=== PATIENT | female | born 1950 | race Caucasian/White ===

== ENCOUNTER → 2017-01-23 | Outpatient (CLI) | payer MEDICARE ==
[~2017-01-23] MED LIST: ATOR10TA PO; B12 PO; D3 PO; HYDR50TA3 PO; LEVO75TA5 PO; LISI-167 PO; METF500T4 PO; OMNIPAQUE 350 MG/ML, 100ML BOTTLE ONE; TRAM50TA2 PO
== END | disposition home or self-care (01) ==
LOC: RAD 09:55
PROVIDERS: ATTEND Surgery
DX: C78.7 Secondary malignant neoplasm of liver and intrahepatic bile duct (principal); C78.89 Secondary malignant neoplasm of other digestive organs; C18.9 Malignant neoplasm of colon, unspecified; R91.8 Other nonspecific abnormal finding of lung field; R16.1 Splenomegaly, not elsewhere classified; I87.1 Compression of vein; R59.9 Enlarged lymph nodes, unspecified; Z90.49 Acquired absence of other specified parts of digestive tract; Z90.710 Acquired absence of both cervix and uterus
CPT/HCPCS: 71260; 74177; Q9967

== ENCOUNTER 2017-01-27 07:01 | Day surgery (SDC) | payer MEDICARE ==
[~2017-01-27] VITALS: Ht 162.6 cm; Wt 79.0 kg
[2017-01-27] MEDS ORDERED: D3 PO (07:32)
[2017-01-27] MEDS ORDERED: LISI-167 PO (07:32)
[2017-01-27] MEDS ORDERED: LEVO75TA5 PO (07:32)
[2017-01-27] MEDS ORDERED: TRAM50TA2 PO (07:32)
[2017-01-27] MEDS ORDERED: B12 PO (07:32)
[2017-01-27] MEDS ORDERED: ATOR10TA PO (07:32)
[2017-01-27] MEDS ORDERED: METF500T4 PO (07:32)
[2017-01-27] MEDS ORDERED: HYDR50TA3 PO (07:32)
[2017-01-27 07:34] VITALS: BP 116/70
[2017-01-27] MEDS ORDERED: MIDAZOLAM 1 MG/ML, 5ML ONE (08:09)
[2017-01-27] MEDS ORDERED: FENTANYL PF 100 MCG/2ML ONE (08:10)
== END 2017-01-27 10:30 | disposition home or self-care (01) ==
LOC: OUT 07:01
PROVIDERS: ATTEND Surgery
DX: C78.7 Secondary malignant neoplasm of liver and intrahepatic bile duct (principal); C18.2 Malignant neoplasm of ascending colon; I10 Essential (primary) hypertension; E11.9 Type 2 diabetes mellitus without complications; Z88.6 Allergy status to analgesic agent; E78.5 Hyperlipidemia, unspecified; E03.9 Hypothyroidism, unspecified; E66.9 Obesity, unspecified; Z68.29 Body mass index [BMI] 29.0-29.9, adult; Z90.49 Acquired absence of other specified parts of digestive tract; Z90.710 Acquired absence of both cervix and uterus; Z72.89 Other problems related to lifestyle; Z91.048 Other nonmedicinal substance allergy status; Z80.1 Family history of malignant neoplasm of trachea, bronchus and lung; Z80.0 Family history of malignant neoplasm of digestive organs; Z80.3 Family history of malignant neoplasm of breast; Z80.43 Family history of malignant neoplasm of testis; Z84.1 Family history of disorders of kidney and ureter
CPT/HCPCS: 36415; 47000; 77012; 85610; 88307; 99156; 99157; J2250; J3010

== ENCOUNTER 2017-02-12 11:00 | Day surgery (SDC) | payer MEDICARE ==
[~2017-02-12] VITALS: Ht 162.6 cm; Wt 77.0 kg
[~2017-02-12 11:00] MED LIST changes: +BUPIVACAINE/PF-EPI 0.5% 1:200K ONE; -OMNIPAQUE 350 MG/ML, 100ML BOTTLE ONE
[2017-02-12] MEDS ORDERED: LACTATED RINGERS 1,000 ML IV SCH (11:34)
[2017-02-12 11:53] VITALS: BP 111/67
[2017-02-12] MEDS ORDERED: MIDAZOLAM 1 MG/ML, 2ML IV PRN (13:00)
[2017-02-12] MEDS ORDERED: OXYcodone 5 MG/5 ML ORAL.SOL UDC PO PRN (13:00)
[2017-02-12] MEDS ORDERED: MEPERIDINE/PF 25MG/0.5ML IVPush PRN (13:00)
[2017-02-12] MEDS ORDERED: morphine SULFATE 10 MG/ML, 1ML IV PRN (13:00)
[2017-02-12] MEDS ORDERED: ONDANSETRON 2MG/ML, 2ML IVPush PRN (13:00)
[2017-02-12] MEDS ORDERED: HEPARIN 1,000 UNITS/ML, 10ML ONE (13:16)
[2017-02-12] MEDS ORDERED: CEFAZOLIN 1,000 MG ONE (13:36)
[2017-02-12] MEDS ORDERED: DEXAMETHASONE 4 MG/ML, 1ML ONE (13:36)
[2017-02-12] MEDS ORDERED: MIDAZOLAM 1 MG/ML, 2ML ONE (13:36)
[2017-02-12] MEDS ORDERED: METOCLOPRAMIDE 5 MG/ML, 2ML ONE (13:36)
[2017-02-12] MEDS ORDERED: FENTANYL PF 100 MCG/2ML ONE ×2 (13:36→14:34)
[2017-02-12] MEDS ORDERED: ONDANSETRON 2MG/ML, 2ML ONE (13:36)
[2017-02-12] MEDS ORDERED: PROPOFOL 10 MG/ML, 20ML ONE (13:36)
[2017-02-12] MEDS ORDERED: OXYcodone 5 MG/5 ML ORAL.SOL UDC ONE (14:34)
[2017-02-12] MEDS: FENTANYL PF 100 MCG/2ML IV PRN ×2 (14:37→14:44)
== END 2017-02-12 16:15 ==
LOC: OUT 11:00
PROVIDERS: ATTEND Surgery
DX: C18.9 Malignant neoplasm of colon, unspecified (principal); E11.9 Type 2 diabetes mellitus without complications; E03.9 Hypothyroidism, unspecified; E78.5 Hyperlipidemia, unspecified; D69.6 Thrombocytopenia, unspecified; Z79.84 Long term (current) use of oral hypoglycemic drugs; Z79.899 Other long term (current) drug therapy; Z88.8 Allergy status to other drugs, medicaments and biological substances; Z72.89 Other problems related to lifestyle; Z68.30 Body mass index [BMI] 30.0-30.9, adult; Z80.3 Family history of malignant neoplasm of breast; Z80.1 Family history of malignant neoplasm of trachea, bronchus and lung; Z90.710 Acquired absence of both cervix and uterus; Z84.1 Family history of disorders of kidney and ureter; Z88.6 Allergy status to analgesic agent
CPT/HCPCS: 36561; 71010; 82962; 93005; C1769; C1788; J0690; J1100; J1644; J2250; J2405; J2704; J2765; J3010; J7120; 36415; 86850; 86870; 86880; 86900; 86902

== ENCOUNTER 2017-03-06 13:46 | Inpatient (IN) | payer MEDICARE ==
[~2017-03-06] VITALS: Ht 162.6 cm; Wt 78.1 kg
[~2017-03-06 13:46] MED LIST changes: -BUPIVACAINE/PF-EPI 0.5% 1:200K ONE
[2017-03-06] MEDS ORDERED: ACETAMINOPHEN 325 MG TABLET PO ONE (14:30)
[2017-03-06] MEDS ORDERED: HYDROcodone/APAP 5/325 TABLET PO ONE (14:30)
[2017-03-06] MEDS ORDERED: CEFTRIAXONE PMX 1GM/50ML 50 ML IVPB ONE (14:30)
[2017-03-06] MEDS ORDERED: SODIUM CHLORIDE 0.9% 1,000ML IVBOLUS ONE ×2 (14:30→15:00)
[2017-03-06] MEDS ORDERED: SODIUM CHLORIDE FLUSH 10ML SYR IVF ONE (14:30)
[2017-03-06] MEDS ORDERED: HYDROcodone/APAP 5/325 TABLET ONE (14:44)
[2017-03-06] MEDS ORDERED: ACETAMINOPHEN 325 MG TABLET ONE (14:44)
[2017-03-06 14:49] LABS: ASPARTATE AMINO TRANSFERASE 25 U/L (15-37); BLOOD UREA NITROGEN 15 mg/dL (7-18)
[2017-03-06] MEDS ORDERED: CEFTRIAXONE PMX 1GM/50ML 50 ML ONE (15:06)
[2017-03-06 15:12] LABS: DIFF TOTAL CELLS COUNTED 200 CELL DIFF; VERIFY COUNTS? YES
[2017-03-06 15:13] LABS: ANISOCYTOSIS 1+; MICROCYTOSIS 1+; POLYCHROMASIA 1+
[2017-03-06 15:14] LABS: LARGE PLATELETS 1+; MONOS WITH VACUOLES 1+
[2017-03-06] MEDS ORDERED: CYAN50008 PO (16:11)
[2017-03-06] MEDS ORDERED: CHOL40002 PO (16:11)
[2017-03-06] MEDS ORDERED: morphine SULFATE 10 MG/ML, 1ML IVPush PRN (17:00)
[2017-03-06] MEDS ORDERED: ONDANSETRON 2MG/ML, 2ML IVPush PRN (17:00)
[2017-03-06] MEDS ORDERED: LORazepam 2 MG/ML, 1ML IVPush PRN (17:00)
[2017-03-06] MEDS ORDERED: VANCOMYCIN PER PHARMACY MC PRN (17:00)
[2017-03-06] MEDS ORDERED: ACETAMINOPHEN 325 MG TABLET PO PRN (17:00)
[2017-03-06] MEDS ORDERED: DOCUSATE 100 MG CAPSULE PO PRN (17:00)
[2017-03-06] MEDS ORDERED: PHARMACOKINETIC MONITORING MC PRN (18:00)
[2017-03-06] MEDS ORDERED: POTASSIUM CHLORIDE 20 MEQ TAB.ER.PRT PO ONE (18:00)
[2017-03-06 18:13] VITALS: BP 95/57
[2017-03-06] MEDS: CEFEPIME 2 GM in DEXTROSE 5% 100 ML IV SCH (19:37)
[2017-03-06] MEDS: ENOXAPARIN 40 MG/0.4 ML SQ SCH (19:39)
[2017-03-06] MEDS: SODIUM CHLORIDE 0.9% 1,000 ML IV SCH (19:41)
[2017-03-06 19:50] VITALS: BP 97/61
[2017-03-06] MEDS: VANCOMYCIN 1,500 MG in SODIUM CHLORIDE 0.9% 250 ML IV SCH (21:14)
[2017-03-06] MEDS: HYDROcodone/APAP 5/325 TABLET PO PRN (21:14)
[2017-03-06] MEDS: INSULIN ASPART 100 UNITS/ML, PEN SQ-INSULIN SCH (21:37)
[2017-03-07 01:49] VITALS: BP 93/56
[2017-03-07] MEDS: LEVOTHYROXINE 75 MCG TABLET PO SCH (03:33)
[2017-03-07] MEDS: CEFEPIME 2 GM in DEXTROSE 5% 100 ML IV SCH ×3 (03:33→20:32)
[2017-03-07 05:26] LABS: BLOOD UREA NITROGEN 13 mg/dL (7-18)
[2017-03-07 05:30] LABS: ASPARTATE AMINO TRANSFERASE 17 U/L (15-37)
[2017-03-07 06:58] LABS: DIFF TOTAL CELLS COUNTED 100 CELL DIFF
[2017-03-07] MEDS: INSULIN ASPART 100 UNITS/ML, PEN SQ-INSULIN SCH ×4 (07:00→20:33)
[2017-03-07] MEDS: HYDROcodone/APAP 5/325 TABLET PO PRN ×3 (07:03→17:38)
[2017-03-07 07:04] VITALS: BP 94/55
[2017-03-07 07:32] LABS: ANISOCYTOSIS 1+; MICROCYTOSIS 1+; VERIFY COUNTS? YES
[2017-03-07] MEDS: VANCOMYCIN 1,500 MG in SODIUM CHLORIDE 0.9% 250 ML IV SCH ×2 (09:49→21:12)
[2017-03-07] MEDS ORDERED: POTASSIUM CHLORIDE 20 MEQ TAB.ER.PRT PO ONE ×2 (10:30→16:30)
[2017-03-07] MEDS ORDERED: CEFTRIAXONE PMX 2GM/50ML 50 ML IV SCH (11:00)
[2017-03-07] MEDS: SODIUM CHLORIDE 0.9% 1,000 ML IV SCH (12:01)
[2017-03-07 13:18] VITALS: BP 112/67
[2017-03-07] MEDS ORDERED: FUROSEMIDE 40 MG/4 ML IV ONE (16:30)
[2017-03-07 18:46] VITALS: BP 105/65
[2017-03-07] MEDS: ENOXAPARIN 40 MG/0.4 ML SQ SCH (20:00)
[2017-03-08 03:00] VITALS: BP 100/62
[2017-03-08] MEDS: CEFEPIME 2 GM in DEXTROSE 5% 100 ML IV SCH ×3 (03:38→19:44)
[2017-03-08] MEDS: LEVOTHYROXINE 75 MCG TABLET PO SCH (03:38)
[2017-03-08 04:10] LABS: DIFF TOTAL CELLS COUNTED 100 CELL DIFF
[2017-03-08 04:11] LABS: BLOOD UREA NITROGEN 11 mg/dL (7-18)
[2017-03-08 04:15] LABS: ASPARTATE AMINO TRANSFERASE 20 U/L (15-37)
[2017-03-08 04:18] LABS: ANISOCYTOSIS 1+; MICROCYTOSIS 1+; POLYCHROMASIA 1+; VERIFY COUNTS? YES
[2017-03-08] MEDS: HYDROcodone/APAP 5/325 TABLET PO PRN ×3 (05:47→17:40)
[2017-03-08] MEDS: INSULIN ASPART 100 UNITS/ML, PEN SQ-INSULIN SCH ×4 (07:00→21:36)
[2017-03-08 07:43] VITALS: BP 128/70
[2017-03-08] MEDS: VANCOMYCIN 1,500 MG in SODIUM CHLORIDE 0.9% 250 ML IV SCH (09:08)
[2017-03-08] MEDS ORDERED: FUROSEMIDE 40 MG/4 ML IV ONE (09:18)
[2017-03-08] MEDS ORDERED: FUROSEMIDE 40 MG/4 ML IV PRN ×2 (09:30→19:00)
[2017-03-08] MEDS ORDERED: POTASSIUM CHLORIDE 20 MEQ TAB.ER.PRT PO ONE (10:00)
[2017-03-08 14:20] VITALS: BP 109/69
[2017-03-08] MEDS ORDERED: FUROSEMIDE 40 MG TABLET PO ONE (16:00)
[2017-03-08] MEDS ORDERED: ONDANSETRON 2MG/ML, 2ML IVPush PRN (19:00)
[2017-03-08] MEDS ORDERED: DOCUSATE 100 MG CAPSULE PO PRN (19:00)
[2017-03-08] MEDS ORDERED: ACETAMINOPHEN 325 MG TABLET PO PRN (19:00)
[2017-03-08] MEDS ORDERED: PHARMACOKINETIC MONITORING MC PRN (19:00)
[2017-03-08] MEDS ORDERED: morphine SULFATE 10 MG/ML, 1ML IVPush PRN (19:00)
[2017-03-08] MEDS ORDERED: LORazepam 2 MG/ML, 1ML IVPush PRN (19:00)
[2017-03-08 19:45] VITALS: BP 101/62
[2017-03-08] MEDS: ENOXAPARIN 40 MG/0.4 ML SQ SCH (19:47)
[2017-03-09] MEDS: VANCOMYCIN 1,500 MG in SODIUM CHLORIDE 0.9% 250 ML IV SCH (00:04)
[2017-03-09 01:24] VITALS: BP 123/75
[2017-03-09] MEDS: LEVOTHYROXINE 75 MCG TABLET PO SCH (04:00)
[2017-03-09] MEDS: CEFEPIME 2 GM in DEXTROSE 5% 100 ML IV SCH ×3 (04:00→19:37)
[2017-03-09 04:37] LABS: BLOOD UREA NITROGEN 10 mg/dL (7-18)
[2017-03-09] MEDS: HYDROcodone/APAP 5/325 TABLET PO PRN ×3 (06:17→17:42)
[2017-03-09] MEDS: INSULIN ASPART 100 UNITS/ML, PEN SQ-INSULIN SCH ×4 (07:29→21:31)
[2017-03-09] MEDS: FUROSEMIDE 40 MG TABLET PO SCH (07:41)
[2017-03-09] MEDS: POTASSIUM CHLORIDE 20 MEQ TAB.ER.PRT PO SCH (07:41)
[2017-03-09 08:11] VITALS: BP 120/71
[2017-03-09] MEDS ORDERED: MAGNESIUM SULFATE PMX 2GM/50ML 50 ML IV ONE (08:30)
[2017-03-09] MEDS ORDERED: POTASSIUM PHOSPHATE 88 MEQ in SODIUM CHLORIDE 0.9% 1,000 ML IV ONE (09:00)
[2017-03-09] MEDS ORDERED: FUROSEMIDE 40 MG TABLET PO SCH (09:00)
[2017-03-09] MEDS ORDERED: POTASSIUM CHLORIDE 20 MEQ TAB.ER.PRT PO ONE (11:00)
[2017-03-09] MEDS: VANCOMYCIN 1,300 MG in SODIUM CHLORIDE 0.9% 250 ML IV SCH (12:54)
[2017-03-09 13:50] VITALS: BP 123/74
[2017-03-09 19:12] VITALS: BP 124/70
[2017-03-09] MEDS: ENOXAPARIN 40 MG/0.4 ML SQ SCH (19:39)
[2017-03-10] MEDS: VANCOMYCIN 1,300 MG in SODIUM CHLORIDE 0.9% 250 ML IV SCH ×2 (00:02→12:46)
[2017-03-10 01:57] VITALS: BP 122/71
[2017-03-10] MEDS: CEFEPIME 2 GM in DEXTROSE 5% 100 ML IV SCH ×3 (04:22→19:49)
[2017-03-10] MEDS: LEVOTHYROXINE 75 MCG TABLET PO SCH (04:36)
[2017-03-10 04:56] LABS: BLOOD UREA NITROGEN 13 mg/dL (7-18)
[2017-03-10] MEDS: HYDROcodone/APAP 5/325 TABLET PO PRN ×2 (05:54→18:15)
[2017-03-10 07:39] VITALS: BP 119/71
[2017-03-10] MEDS: INSULIN ASPART 100 UNITS/ML, PEN SQ-INSULIN SCH ×4 (08:40→20:47)
[2017-03-10] MEDS: POTASSIUM CHLORIDE 20 MEQ TAB.ER.PRT PO SCH (08:40)
[2017-03-10] MEDS: FUROSEMIDE 40 MG TABLET PO SCH (08:40)
[2017-03-10] MEDS ORDERED: HYDR-3240 PO (14:07)
[2017-03-10] MEDS ORDERED: POTA20TA6 PO (14:07)
[2017-03-10] MEDS ORDERED: FURO40TA6 PO (14:07)
[2017-03-10] MEDS ORDERED: POLY17PO5 PO (14:07)
[2017-03-10] MEDS ORDERED: CEFD300C37 PO (14:12)
[2017-03-10] MEDS ORDERED: PHARMACY INSTRUCTION MC ONE (16:00)
[2017-03-10 16:01] VITALS: BP 129/72
[2017-03-10] MEDS: ENOXAPARIN 40 MG/0.4 ML SQ SCH (19:56)
[2017-03-10 20:01] VITALS: BP 126/73
[2017-03-11] MEDS: VANCOMYCIN 1,300 MG in SODIUM CHLORIDE 0.9% 250 ML IV SCH (00:01)
[2017-03-11] MEDS: LEVOTHYROXINE 75 MCG TABLET PO SCH (04:14)
[2017-03-11] MEDS: CEFEPIME 2 GM in DEXTROSE 5% 100 ML IV SCH ×2 (04:14→08:02)
[2017-03-11 04:20] VITALS: BP 127/78
[2017-03-11] MEDS: HYDROcodone/APAP 5/325 TABLET PO PRN (06:30)
[2017-03-11 07:15] VITALS: BP 121/71
[2017-03-11] MEDS: FUROSEMIDE 40 MG TABLET PO SCH (07:26)
[2017-03-11] MEDS: POTASSIUM CHLORIDE 20 MEQ TAB.ER.PRT PO SCH (07:26)
[2017-03-11] MEDS: INSULIN ASPART 100 UNITS/ML, PEN SQ-INSULIN SCH (07:27)
== END 2017-03-11 08:59 | disposition home or self-care (01) | DRG 871 ==
LOC: ED 15:17 → EDIP 15:38 → 3NW 17:04
PROVIDERS: ADMIT Internal Medicine; ATTEND Internal Medicine
DX: A41.9 Sepsis, unspecified organism (principal); E43 Unspecified severe protein-calorie malnutrition; N17.0 Acute kidney failure with tubular necrosis; R65.21 Severe sepsis with septic shock; C18.9 Malignant neoplasm of colon, unspecified; C78.00 Secondary malignant neoplasm of unspecified lung; C78.7 Secondary malignant neoplasm of liver and intrahepatic bile duct; E87.2 Acidosis; N10 Acute pyelonephritis; D75.89 Other specified diseases of blood and blood-forming organs; D64.9 Anemia, unspecified; E03.9 Hypothyroidism, unspecified; E11.9 Type 2 diabetes mellitus without complications; E83.39 Other disorders of phosphorus metabolism; E87.6 Hypokalemia; I10 Essential (primary) hypertension; Z80.3 Family history of malignant neoplasm of breast; Z80.43 Family history of malignant neoplasm of testis; Z90.49 Acquired absence of other specified parts of digestive tract; Z90.710 Acquired absence of both cervix and uterus; Z98.51 Tubal ligation status; Z88.6 Allergy status to analgesic agent; Z68.29 Body mass index [BMI] 29.0-29.9, adult; Z85.038 Personal history of other malignant neoplasm of large intestine
CPT/HCPCS: 36415; 71010; 74176; 80048; 80053; 80202; 81001; 82962; 83036; 83605; 83735; 84100; 84145; 84443; 85025; 87040; 87086; 93005; 93306; 96361; 96365; J0696; J1815; J1940; J3370; J3475; J7030; J7050

== ENCOUNTER → 2017-05-14 | Outpatient (CLI) | payer MEDICARE ==
[~2017-05-14] MED LIST changes: +CEFD300C37 PO; +CHOL40002 PO; +CYAN50008 PO; +FURO40TA6 PO; +HYDR-3240 PO; +POLY17PO5 PO; +POTA20TA6 PO
== END | disposition home or self-care (01) ==
LOC: CFH 12:14
PROVIDERS: ATTEND Specialist
DX: C78.7 Secondary malignant neoplasm of liver and intrahepatic bile duct (principal); C79.51 Secondary malignant neoplasm of bone; C18.0 Malignant neoplasm of cecum; G54.3 Thoracic root disorders, not elsewhere classified; R91.8 Other nonspecific abnormal finding of lung field; I25.10 Atherosclerotic heart disease of native coronary artery without angina pectoris; N28.1 Cyst of kidney, acquired; R59.1 Generalized enlarged lymph nodes
CPT/HCPCS: 71260; 74177

== ENCOUNTER → 2017-06-23 | Outpatient (CLI) | payer MEDICARE ==
[~2017-06-23] MED LIST changes: +HYDR25TA6 PO; +LISI-170 PO
== END | disposition home or self-care (01) ==
LOC: RAD 13:53
PROVIDERS: ATTEND Urology
DX: N20.0 Calculus of kidney (principal)
CPT/HCPCS: 74000

== ENCOUNTER → 2017-07-24 | Outpatient (CLI) | payer MEDICARE | END | disposition home or self-care (01) | LOC: CFH 10:28 | PROVIDERS: ATTEND Urology | DX: N28.1 Cyst of kidney, acquired (principal); B44.81 Allergic bronchopulmonary aspergillosis | CPT/HCPCS: 76770 ==

== ENCOUNTER → 2017-09-04 | Outpatient (CLI) | payer MEDICARE ==
[~2017-09-04] MED LIST changes: +OMNIPAQUE 350 MG/ML, 100ML BOTTLE ONE
== END | disposition home or self-care (01) ==
LOC: CFH 12:11
PROVIDERS: ATTEND Specialist
DX: C18.0 Malignant neoplasm of cecum (principal); K76.89 Other specified diseases of liver; M89.8X8 Other specified disorders of bone, other site; M51.37 Other intervertebral disc degeneration, lumbosacral region; R91.8 Other nonspecific abnormal finding of lung field; Z90.710 Acquired absence of both cervix and uterus; Z90.49 Acquired absence of other specified parts of digestive tract
CPT/HCPCS: 71260; 74177; Q9967

== ENCOUNTER → 2018-01-28 | Outpatient (CLI) | payer MEDICARE ==
[~2018-01-28] MED LIST changes: -METF500T4 PO; +METF500T5 PO
== END | disposition home or self-care (01) ==
LOC: RAD 11:19
PROVIDERS: ATTEND Specialist
DX: R91.1 Solitary pulmonary nodule (principal); C18.0 Malignant neoplasm of cecum
CPT/HCPCS: 71260; 74177; Q9967

== ENCOUNTER → 2018-05-26 | Outpatient (CLI) | payer MEDICARE ==
[~2018-05-26] MED LIST changes: +METF500T17 PO; -METF500T5 PO
== END | disposition home or self-care (01) ==
LOC: RAD 09:48
PROVIDERS: ATTEND Specialist
DX: R91.8 Other nonspecific abnormal finding of lung field (principal); N13.30 Unspecified hydronephrosis; C79.51 Secondary malignant neoplasm of bone; K76.9 Liver disease, unspecified
CPT/HCPCS: 71260; 74177; Q9967